=== PATIENT | male | born 1985 | race Caucasian/White ===

== ENCOUNTER 2016-05-24 11:30 | Outpatient (RCR) | payer BC | END 2016-05-27 | disposition home or self-care (01) | LOC: WSPT | DX: S72.422D Displaced fracture of lateral condyle of left femur, subsequent encounter for closed fracture with routine healing (principal); X58.XXXD Exposure to other specified factors, subsequent encounter | CPT/HCPCS: G0283-GP ==

== ENCOUNTER 2016-08-10 13:06 | Emergency (ER) | payer BC ==
[~2016-08-10] VITALS: Ht 182.9 cm; Wt 104.5 kg
[2016-08-10 13:09] VITALS: BP 133/69; PULSE 80; TEMP 98
== END 2016-08-10 15:00 | disposition home or self-care (01) ==
LOC: COL.ER 13:06
DX: S61.217A Laceration without foreign body of left little finger without damage to nail, initial encounter (principal); S61.215A Laceration without foreign body of left ring finger without damage to nail, initial encounter; W29.0XXA Contact with powered kitchen appliance, initial encounter; Z23 Encounter for immunization

== ENCOUNTER 2016-08-22 12:30 | Outpatient (RCR) | payer BC | END 2016-08-26 | disposition home or self-care (01) | LOC: WSPT | DX: S72.8X2D Other fracture of left femur, subsequent encounter for closed fracture with routine healing (principal); X58.XXXD Exposure to other specified factors, subsequent encounter | CPT/HCPCS: G0283-GP ==

== ENCOUNTER 2016-11-07 08:45 | Outpatient (RCR) | payer BC | END 2016-11-14 08:57 | LOC: WSPT 08:45 | DX: M25.562 Pain in left knee (principal) ==